=== PATIENT | female | born 1975 | race Hispanic/Latino ===

== ENCOUNTER 2019-03-09 08:34 | Outpatient (CLI) | payer BC ==
--- NOTE | 2019-03-09 10:11 | MRI ---
MRI Upper Ext Jt Rt WO Con History: Rotator cuff impingement syndrome. M a 75.41 Comparison: Shoulder radiograph October 2018 Findings: Biceps; the extra articular biceps tendon is normal. Intra-articular tendon is low-grade in terstitial tearing. Labrum: Tear throughout the superior labrum extending anterior-posterior to the biceps labral expansi on. Rotator cuff: 20-30% undersurface partial tear supraspinatus at the critical zone along with moderate bursal surface fraying of the supraspinatus and infraspinatus tendons with interstitial delamination extending along the myotendinous junctions. The subscapularis is intact. No definite full-thickness perforation is appreciated. Bones: Mild elevation of distal clavicle relative to the acromion with a thickened acromioclavicular ligaments. Moderate lateral downsloping of the acromion. Normal glenoid version. No acute fracture. Muscles: No significant muscle atrophy. Soft tissues: Moderate subacromial subdeltoid bursa effusion. Impression: 1. Superior labral tear anterior-posterior to the biceps labral expansion. 2. Moderate lateral subacromial downsloping narrowing the subacromial space with reactive subacromial subdeltoid bursa effusion as well as moderate bursal surface fraying of the supraspinatus and interspinous tendons. 3. 20-30% undersurface partial tearing of anterior 1 cm fibers supraspinatus tendon at the critical z one. No full-thickness perforation. 4. Mild elevation distal clavicle relative to the acromion with thickened acromioclavicular ligament suggesting prior acromioclavicular partial separation. Coracoclavicular ligaments are intact.
== END 2019-03-09 08:35 | disposition home or self-care (01) ==
LOC: SCSMRI 08:34
PROVIDERS: ATTEND Family Medicine
DX: M75.41 Impingement syndrome of right shoulder (principal); S43.431A Superior glenoid labrum lesion of right shoulder, initial encounter